=== PATIENT | male | born 1985 | race American Indian/Alaskan Native ===

== ENCOUNTER 2016-10-16 16:17 | Emergency (ER) | payer MEDICAID, OTHER ==
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
[2016-10-16] MEDS ORDERED: Diphtheria,Pertussis(Acell),Tetanus Vaccine 0.5 ML SDV IM ONE (16:38)
[2016-10-16] MEDS ORDERED: Lidocaine 1% with EPINEPHrine 1:100,000 20 ML MDV INJECT ONE (16:38)
[2016-10-16] MEDS ORDERED: Cephalexin 500 MG Cap PO ONE (16:39)
[2016-10-16 16:44] VITALS: BP 138/81
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
[2016-10-16] MEDS ORDERED: Bacitracin Oint 1 GM U/D Packet TOP ONE (18:34)
== END 2016-10-16 18:42 | disposition home or self-care (01) ==
LOC: DL.ED 16:17
DX: S06.0X1A Concussion with loss of consciousness of 30 minutes or less, initial encounter (principal); S01.81XA Laceration without foreign body of other part of head, initial encounter; F10.120 Alcohol abuse with intoxication, uncomplicated; Z23 Encounter for immunization; Z87.891 Personal history of nicotine dependence; W22.8XXA Striking against or struck by other objects, initial encounter
CPT/HCPCS: 12015; 70450; 70486; 90471; 90715; 99283; A9270